=== PATIENT | male | born 1955 | race Caucasian/White ===

== ENCOUNTER 2016-04-15 17:13 | Emergency (ER) | payer BC ==
--- NOTE | 2016-04-15 17:55 | UC ---
Eye Complaint HPI - HPI Summary HPI Summary: left eye red with purulent drainage had sinus congestion and cold sx last week - History of Current Complaint Stated Complaint: CRUSTY ITCHY EYE Time Seen by Provider: 04/15/16 17:54 Hx Obtained From: Patient Onset/Duration: Sudden Onset, Lasting Days - 2, Still Present Timing: Constant Severity Initially: Mild Severity Currently: Mild Aggravating Factor(s): Nothing Alleviating Factor(s): Nothing Associated Signs And Symptoms: Positive: Drainage (Purulent). Negative: Vision Impairment Right, Vision Impairment Left, Fever, Swelling - Allergies/Home Medications Allergies/Adverse Reactions: Allergies Allergy/AdvReac Type Severity Reaction Status Date / Time No Known Allergies Allergy Verified 08/22/15 10:16 PMH/Surg Hx/FS Hx/Imm Hx Previously Healthy: No Cardiovascular History Of: Reports: Hypertension - ON MEDICATION FOR, Congestive Heart Failure - 2009, Atrial Fibrillation Neurological History Of: Denies: Seizures, Migraine Psychological History Of: Denies: Anxiety, Depression - Surgical History Surgical History: Yes Surgery Procedure, Year, and Place: 1959-ADENOIDECTOMY AND TONSILLECTOMY- [place]. 1959-2 PENNIES REMOVED FROM STOMACH-[place]. 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 1994-VASECTOMY- DR. NINO OFFICE. 2012 - COLONOSCOPY, REMOVED BENIGN POLYPSX2. LEFT INGUINAL HERNIA REPAIR MARCH 2015 - Family History Known Family History: Positive: None Family History: no cardiovascular issues reported in family lineage - Social History Occupation: Retired Lives: With Family Alcohol Use: None Substance Use Type: None Smoking Status (MU): Former Smoker Amount Used/How Often: 1 PPD X 2 YEARS Have You Smoked in the Last Year: No When Did the Patient Quit Smoking/Using Tobacco: 37 YEARS AGO Review of Systems Constitutional: Negative Skin: Negative Eyes: Drainage - right, Eye Redness - right ENT: Negative Respiratory: Negative Cardiovascular: Negative Gastrointestinal: Negative Genitourinary: Negative Motor: Negative Neurovascular: Negative Musculoskeletal: Negative Neurological: Negative Psychological: Negative All Other Systems Reviewed And Are Negative: Yes Physical Exam Triage Information Reviewed: Yes Appearance: Well-Appearing, No Pain Distress, Well-Nourished Vital Signs Reviewed: Yes Eyes: Positive: Conjunctiva Inflamed - right, Discharge - right ENT Exam: Normal ENT: Positive: Normal ENT inspection, Hearing grossly normal, Pharynx normal, Nasal congestion, Nasal drainage. Negative: Tonsillar swelling, Tonsillar exudate, Trismus, Muffled/hoarse voice Dental Exam: Normal Neck exam: Normal Neck: Positive: Supple, Nontender Respiratory Exam: Normal Respiratory: Positive: Chest non-tender, Lungs clear, Normal breath sounds, No respiratory distress, No accessory muscle use Cardiovascular Exam: Normal Cardiovascular: Positive: RRR, No Murmur, Pulses Normal, Brisk Capillary Refill Musculoskeletal Exam: Normal Musculoskeletal: Positive: Strength Intact, ROM Intact, No Edema Neurological Exam: Normal Neurological: Positive: Alert, Muscle Tone Normal Psychological Exam: Normal Skin Exam: Normal Eye Complaint Course/Dx - Course Course Of Treatment: polytrim eye drops, warm water washes follow with pcp prn - Differential Dx/Diagnosis Differential Diagnosis/HQI/PQRI: Conjunctivitis, Periorbital Cellulitis, Orbital Cellulitis Provider Diagnoses: OD Conjuctivitis Discharge - Discharge Plan Condition: Stable Disposition: HOME Prescriptions: Polymyx/Trimethoprim OPTH* [Polytrim OPHTH*] 1 drop LEFT EYE Q4H #1 btl Patient Education Materials: How to Use Eye Drops (ED), Conjunctivitis (ED) Referrals: Ambrocio Wakefield MD [Primary Care Provider] - If Needed
[2016-04-15 18:04] VITALS: BP 158/93
== END 2016-04-15 18:12 | disposition home or self-care (01) ==
LOC: UCEAST 17:13
DX: H10.31 Unspecified acute conjunctivitis, right eye (principal); I10 Essential (primary) hypertension; Z87.891 Personal history of nicotine dependence
CPT/HCPCS: 99212; G0463

== ENCOUNTER → 2018-11-12 06:31 | Day surgery (SDC) | payer BC ==
[~2018-11-12 06:31] MED LIST: Buffered Lidocaine 1% SYRIN* 1 ML/SYRINGE INTRADERM ONE; Bupivacaine 0.5% W/EPI SDV* 10 ML VIAL INJ ONE; Chloroprocaine 2%* 20 ML VIAL ONE; Dexamethasone IV* 4 MG/ML 1 ML (4 MG) ONE; Famotidine IV* 10 MG/ML 2 ML (20 mg) IV ONE; Famotidine IV* 10 MG/ML 2 ML (20 mg) ONE; KETAMINE HCL* 50 MG/ML 10 ML VIAL ONE; Ketorolac INJ* 30 MG/ML 1 ML VIAL ONE; Lactated Ringers 1000 ML Bag* 1,000 ML IV SCH; Lidocaine 1% INJ* 10 MG/ML 30 ML SDV ONE; Lidocaine 2% PF * 5 ML VIAL ONE; Midazolam* 1 MG/ML 2 ML VIAL (2 MG) ONE; Midazolam* 1 MG/ML 5 ML VIAL (5 MG) ONE; Naloxone* 0.4 MG/ML 1 ML VIAL IV PRN; Ondansetron INJ* 2 MG/ML VIAL IV PRN; Ondansetron INJ* 2 MG/ML VIAL ONE; Propofol* 10 MG/ML 20 ML BTL ONE; ceFAZolin 2 GM in NS PREMIX(*) 2 GM/100 ML BAG IVPB ONE; fentaNYL* 50 MCG/ML 2 ML VIAL (100 MCG VIAL) IV PRN; fentaNYL* 50 MCG/ML 2 ML VIAL (100 MCG VIAL) ONE; oxyCODONE/Acetamin 5/325 MG* TAB PO PRN
--- NOTE | 2018-11-12 10:41 | OP ---
Operative Report - Blank - Operative Report Date of Operation: 11/12/18 Note: OPERATIVE REPORT Pre-op: Right inguinal hernia Post-Op: Right indirect inguinal hernia Procedure:Open repair with mesh of right indirect inguinal hernia Surgeon: MD Tommy Asst: Haley Lerma NP Anes: Spinal with MAC and local, Dr. Gardiner IVF: One liter of crystalloid EBL:min Specimen: None Drain: None Wound: One To PACU
[2018-11-12 13:16] VITALS: BP 108/63
--- NOTE | 2018-11-12 13:16 | OP ---
CC: [facility]; Dr. Ambrocio Wakefield OPERATIVE REPORT: DATE OF OPERATION: 11/12/18 DATE OF : 55 SURGEON: Ho Sanders MD. [facility]ACLE ERP DEVELOPER: Lety Leram NP. ANESTHESIOLOGIST: Dr. Gardiner. ANESTHESIA: Spinal with local anesthetic and intravenous sedation. PRE-OP DIAGNOSIS: Right inguinal hernia. POST-OP DIAGNOSIS: Right indirect inguinal hernia. OPERATIVE PROCEDURE: Open repair with mesh of a right indirect inguinal hernia. ESTIMATED BLOOD LOSS: Minimal. WOUND CLASSIFICATION: I. COMPLICATIONS: None. DRAINS: None. IV FLUIDS: 1 L of crystalloid. FINDINGS: The patient had a large patulous internal ring, several large lipomas in the indirect spac e. There was no evidence of a direct space hernia. DESCRIPTION OF PROCEDURE: Written informed consent was obtained, the right groin was marked with ind elible ink and preoperative antibiotics were administered. The patient was taken to the operating ro om and spinal anesthetic was administered. He was then placed in the supine position. Sequential co mpression devices and warming blanket were applied. The right groin and lower abdomen were prepped a nd draped in usual sterile fashion. Time-out verification was completed. Marcaine 0.5% with epinephrine was infiltrated in the right groin and an oblique incision was made se veral fingerbreadths above the inguinal crease and carried down through Albert's fascia. The external oblique aponeurosis was identified and was opened in the direction of its fibers to expo se the underlying spermatic cord and inguinal floor. The spermatic cord was encircled with a one-quarter inch Ivy drain in the pubic tubercle. Careful evaluation noted no evidence of a direct space hernia. There were several large lipomas of the cord, which were and followed up into the internal ring. The internal ring was quite large and patulous. The lipomas were reduced back into the retrop eritoneum without difficulty. Careful evaluation of the cord structures revealed no true indirect inguinal hernia sac, however. With these findings, a Bard Covidien Precut Progrip mesh was then placed and sutured to pubic tubercl e immediately with 0 Vicryl suture. It was then placed to cover the direct and indirect space recons tructing the inguinal ring around the spermatic cord. It was sutured to the conjoint tendon superior ly with several 0 Vicryl sutures. The mesh sat nicely with no evidence of wrinkling or folding. Additional Marcaine was infiltrated. Hemostasis was assured. The external oblique aponeurosis was closed with running 3-0 Vicryl suture. Albert's fascia was close d with running 3-0 Vicryl suture. The skin was approximated with a subcuticular 4-0 Vicryl suture. Steri-Strips and sterile dressings were applied. The patient tolerated the procedure well and was ta gab to the recovery room in stable condition. [id number]/[facility] #: [id number]
== END | disposition home or self-care (01) ==
LOC: OR 06:31
PROVIDERS: ATTEND Surgery
DX: K40.90 Unilateral inguinal hernia, without obstruction or gangrene, not specified as recurrent (principal); I10 Essential (primary) hypertension; I48.91 Unspecified atrial fibrillation; Z87.891 Personal history of nicotine dependence; I50.9 Heart failure, unspecified; Z79.82 Long term (current) use of aspirin
CPT/HCPCS: C1781; J0690; J1100; J1885; J2250; J2400; J2405; J2704; J3010

== ENCOUNTER 2019-01-19 07:56 | Day surgery (SDC) | payer BC ==
[~2019-01-19 07:56] MED LIST changes: -Bupivacaine 0.5% W/EPI SDV* 10 ML VIAL INJ ONE; -Chloroprocaine 2%* 20 ML VIAL ONE; -Dexamethasone IV* 4 MG/ML 1 ML (4 MG) ONE; -Famotidine IV* 10 MG/ML 2 ML (20 mg) IV ONE; -Famotidine IV* 10 MG/ML 2 ML (20 mg) ONE; -KETAMINE HCL* 50 MG/ML 10 ML VIAL ONE; -Ketorolac INJ* 30 MG/ML 1 ML VIAL ONE; -Lactated Ringers 1000 ML Bag* 1,000 ML IV SCH; -Lidocaine 1% INJ* 10 MG/ML 30 ML SDV ONE; -Lidocaine 2% PF * 5 ML VIAL ONE; -Midazolam* 1 MG/ML 2 ML VIAL (2 MG) ONE; -Midazolam* 1 MG/ML 5 ML VIAL (5 MG) ONE; -Naloxone* 0.4 MG/ML 1 ML VIAL IV PRN; -Ondansetron INJ* 2 MG/ML VIAL IV PRN; -Ondansetron INJ* 2 MG/ML VIAL ONE; -Propofol* 10 MG/ML 20 ML BTL ONE; -ceFAZolin 2 GM in NS PREMIX(*) 2 GM/100 ML BAG IVPB ONE; -fentaNYL* 50 MCG/ML 2 ML VIAL (100 MCG VIAL) IV PRN; -fentaNYL* 50 MCG/ML 2 ML VIAL (100 MCG VIAL) ONE; -oxyCODONE/Acetamin 5/325 MG* TAB PO PRN
[2019-01-19] MEDS ORDERED: Midazolam* 1 MG/ML 2 ML VIAL (2 MG) ONE ×2 (09:12→09:52)
[2019-01-19 11:43] VITALS: BP 112/70
--- NOTE | 2019-01-19 12:05 | OP ---
DATE OF OPERATION: 01/19/19 [facility] DATE OF : 55 SURGEON: Tristan Nicholson M.D. PREOPERATIVE DIAGNOSIS: Cataract, right eye. POSTOPERATIVE DIAGNOSIS: Cataract, right eye. OPERATIVE PROCEDURE: Extracapsular cataract extraction with intraocular lens implant, right eye. DESCRIPTION OF PROCEDURE: The patient was brought to the operating room after being given 1/2% Alcaine with epinephrine drops in the preoperative area. The eye was prepped and draped in the usual sterile fashion. Sterile drape and eyelid speculum were placed. Again, topical 1/2% Alcaine with epinephrine was given. A paracentesis incision was made at the 9 o'clock position with the No.75 blade. Clear cornea incision 2.2 x 2.2-mm was created at the 12 o'clock position starting at the anterior limbus using the 2.2-mm keratome. The anterior chamber was irrigated with 0.4 mL of 1% non-preservative intracameral lidocaine and filled with DisCoVisc. A capsulorrhexis was completed using the cystotome and the Utrata forceps. Hydrodissection was performed with balanced salt solution. The lens nucleus was removed with the Phacoemulsification handpiece without incident. Cortex was removed with the irrigation-aspiration handpiece. The capsular bag was re-inflated using DisCoVisc and an [id number] implant was inserted with the shooter, oriented to the 174-degree meridian. All measurements were confirmed with ORA. Horizontal reference enriquez were made with the patient in a seated position in the preoperative area. The irrigation- aspiration handpiece was used to remove all residual DisCoVisc. The eye was refilled with balanced salt solution and the wound checked and found to be watertight. Topical Maxitrol drops were given. [id number]/[facility] #: [id number] SELENE
[2019-01-19] MEDS ORDERED: Cyclopentolate 1% OPTH.SOL* 2 ML BTL ONE (13:49)
[2019-01-19] MEDS ORDERED: Lidocaine 2% w/ EPI 1:200,000* 20 ML SDV VIAL ONE (13:49)
[2019-01-19] MEDS ORDERED: Neomycin/Polymy/Dex OPTH.SUSP* MAXITROL 0.1% 5 ML ONE (13:49)
[2019-01-19] MEDS ORDERED: acetaZOLAMIDE TAB* 250 MG ONE (13:49)
[2019-01-19] MEDS ORDERED: Proparacaine 0.5% OPHTH.SOL* 15 ML BTL ONE (13:49)
[2019-01-19] MEDS ORDERED: Povidone Iodine 5% OPTH* 30 ML BTL ONE (13:49)
[2019-01-19] MEDS ORDERED: Lidocaine 1% MPF ** 5 ML VIAL ONE (13:49)
[2019-01-19] MEDS ORDERED: Ketorolac 0.5% OPHTH (NF) 0.5 % 5 ML BTL ONE (13:49)
[2019-01-19] MEDS ORDERED: Phenylephrine OPHTH SOL 2.5%* 2 ML ONE (13:49)
== END 2019-01-19 10:33 | disposition home or self-care (01) ==
LOC: OREAST 07:56
PROVIDERS: ATTEND Specialist
DX: H25.11 Age-related nuclear cataract, right eye (principal); I10 Essential (primary) hypertension; I48.91 Unspecified atrial fibrillation; Z79.01 Long term (current) use of anticoagulants
CPT/HCPCS: A9270-GY; J2250; V2787

== ENCOUNTER 2019-01-26 08:58 | Day surgery (SDC) | payer BC ==
[2019-01-26] MEDS ORDERED: fentaNYL* 50 MCG/ML 2 ML VIAL (100 MCG VIAL) ONE (10:38)
[2019-01-26] MEDS ORDERED: Midazolam* 1 MG/ML 2 ML VIAL (2 MG) ONE (10:38)
[2019-01-26 11:35] VITALS: BP 138/84
--- NOTE | 2019-01-26 12:33 | OP ---
OPERATIVE NOTE: DATE OF OPERATION: 01/26/19 DATE OF : 55 SURGEON: Tristan Nicholson MD PREOPERATIVE DIAGNOSIS: Cataract, left eye. POSTOPERATIVE DIAGNOSIS: Cataract, left eye. OPERATIVE PROCEDURE: Extracapsular cataract extraction with intraocular lens implant left eye. PROCEDURE: The patient was brought to the operating room after being given 1/2% Alcaine with epineph rine drops in the preoperative area. The eye was prepped and draped in the usual sterile fashion. S terile drape and eyelid speculum were placed. Again, topical 1/2% Alcaine with epinephrine was given . A paracentesis incision was made at the 3 o'clock position with the No.75 blade. Clear cornea inc ision 2.2 x 2.2-mm was created at the 6 o'clock position starting at the anterior limbus using the 2. 2-mm keratome. The anterior chamber was irrigated with 0.4 mL of 1% non-preservative intracameral li docaine and filled with DisCoVisc. A capsulorrhexis was completed using the cystotome and the Utrata forceps. Hydrodissection was performed with balanced salt solution. The lens nucleus was removed wi th the Phacoemulsification handpiece without incident. Cortex was removed with the irrigation-aspira tion handpiece. The capsular bag was re-inflated using DisCoVisc and an [id number] 15.5 implant was inse rted with the shooter. Oriented to 180 degree meridian. All measurements performed with ORA. The i rrigation- aspiration handpiece was used to remove all residual DisCoVisc. The eye was refilled with balanced salt solution and the wound checked and found to be watertight. Topical Maxitrol drops wer e given. [id number]/[facility] #: [id number]
[2019-01-26] MEDS ORDERED: Povidone Iodine 5% OPTH* 30 ML BTL ONE (13:12)
[2019-01-26] MEDS ORDERED: Ketorolac 0.5% OPHTH (NF) 0.5 % 5 ML BTL ONE (13:12)
[2019-01-26] MEDS ORDERED: Phenylephrine OPHTH SOL 2.5%* 2 ML ONE (13:12)
[2019-01-26] MEDS ORDERED: acetaZOLAMIDE TAB* 250 MG ONE (13:12)
[2019-01-26] MEDS ORDERED: Lidocaine 1% MPF ** 5 ML VIAL ONE (13:12)
[2019-01-26] MEDS ORDERED: Proparacaine 0.5% OPHTH.SOL* 15 ML BTL ONE (13:12)
[2019-01-26] MEDS ORDERED: Neomycin/Polymy/Dex OPTH.SUSP* MAXITROL 0.1% 5 ML ONE (13:12)
[2019-01-26] MEDS ORDERED: Lidocaine 2% w/ EPI 1:200,000* 20 ML SDV VIAL ONE (13:12)
[2019-01-26] MEDS ORDERED: Cyclopentolate 1% OPTH.SOL* 2 ML BTL ONE (13:12)
== END 2019-01-26 11:35 | disposition home or self-care (01) ==
LOC: OREAST 08:58
PROVIDERS: ATTEND Specialist
DX: H25.12 Age-related nuclear cataract, left eye (principal); Z96.1 Presence of intraocular lens; I10 Essential (primary) hypertension; I48.0 Paroxysmal atrial fibrillation; Z79.82 Long term (current) use of aspirin; Z79.899 Other long term (current) drug therapy
CPT/HCPCS: A9270-GY; J2250; J3010; V2787